=== PATIENT | female | born 1950 | race Caucasian/White ===

== ENCOUNTER → 2020-12-06 | Outpatient (CLI) | payer MEDICARE ==
[~2020-12-06] MED LIST: ACET500T68 PO; AMLO-186 PO; CYCL10TA2 PO; ESTR-113 PO; FAMO20TA5 PO; FENO160T PO; GABA300C18 PO; IOHEXOL 180 MG/ML 10 ML VIAL. ONE; LEVO25TA4 PO; LOSA1TAB25 PO; MELA10TA7 PO; MELO15TA23 PO; NIAC500T51 PO; SERT50TA PO; TRAZ-123 PO; methylPREDNISolone ACETATE 80 MG/ML VIAL. ONE
--- NOTE | 2020-12-06 11:52 | PDOC4 ---
Procedure Note: ICD 10 Code: ICD 10 Code: M54.16 M4 8.07 M51.36 M 96.1 Procedure Note: Patient was consented for lumbar epidural steroid injection with fluoroscopic guidance. Risks were discussed including but not limited to: Bleeding, infection, possibility of epidural hematoma and subsequent neurological compromise, dural puncture, headaches, spinal cord and/or nerve damage, side effects of steroid medication, and poor results regarding pain control. Patient understands and wished to proceed. Procedure is lumbar epidural steroid injection under local anesthetic using sterile prep and drape at the L3-4 level using C-arm fluoroscopic guidance in both AP and lateral views medications injected is 120 mg Depo-Medrol +10mL preservative-free normal saline and 2 mL contrast- condition at discharge is stable patient tolerated procedure well had no complications. LA ESPINOZA MD Dec 06, 2020 11:52
--- NOTE | 2020-12-06 11:52 | PDOC1 ---
INITIAL PAIN CONSULT DATE OF SERVICE: DOS: DATE: 12/06/20 TIME: 11:44 CHIEF COMPLAINT: Chief Complaint: Low back and left greater than right lower extremity pain HISTORY OF PRESENT ILLNESS: 70-year-old female presents history of pain low back bilateral lower extremities left greater than right for many years worse over the past 3 months or so though patient reports increased pain without the result of any injury or accident that she is aware of is getting worse with walking standing changing position specially getting up from a seated position and standing patient reports pain in both legs but worse on the left side most times. Patient reports pain across th e low back and the bilateral lower extremities posterior gluteus lateral thighs anterior thighs medial thighs and posterior thighs to some extent as well right and left patient reports again the left is worse better with sitting or laying down generally does not awaken her from sleep at night she does take a sleeping aid however patient reports no bowel or bladder incontinence, but does affect her ability to walk although she does not use any assistive devices. Patient is had physical therapy in the past has been doing some stretching and exercises from this as well these are helping the pain significantly. Patient is not had any other treatments at this time. Patient is taking gabapentin as well as [id number] Tylenol which will decrease the pain slightly. Patient rates her disability rating 0-10 10 being the worst is a 7 with family home responsibilities social activity and self-care 10 with recreational activities 0 with occupation and sexual behavior in 3 with life support activities. Patient have an MRI scan lumbar spine showing at L3-4 generalized disc bulge and severe bilateral ligamentum flavum thickening resulting in severe central canal stenosis severe bilateral facet arthropathy left paracentral focal disc extrusion or sequestered disc fragment measuring 8 mm extending superiorly along the course of the traversing left L3 nerve root and posterior to the left aspect of the L3 vertebral body. L4-5 shows previous fusion with advanced facet arthropathy. PAST MEDICAL HISTORY: PMH: Hypertension, heart murmur, hypothyroidism, anemia PREVIOUS SURGERIES: Past Surgical Hx: Hysterectomy, tonsillectomy, , lumbar surgery with fusion, bilateral hip replacements, bowel resection, right foot pinning CURRENT MEDICATIONS: Current Meds: Active Scripts Medications Dose Route/Sig Max Daily Dose Days Date Category Acetaminophen 500 Mg Tablet 2 Tab PO PRN BID PRN 30 12/06/20 Reported Niacinamide 500 Mg Tablet 500 Mg PO BID 12/06/20 Reported Famotidine 20 Mg Tablet 20 Mg PO HS 12/06/20 Reported Melatonin 10 Mg Tab.rapdis 1 Tab PO QHS 30 12/06/20 Reported Trazodone Hcl 100 Mg Tablet 1 Tab PO QHS 12/06/20 Reported Gabapentin (Gabapentin) 300 Mg Capsule 300 Mg PO HS 12/06/20 Reported Meloxicam 15 Mg Tablet 1 Tab PO DAILY 30 12/06/20 Reported Losartan-Hctz 100-12.5 Mg Tab (Losartan/Hydrochlorothiazide) 1 Each Tablet 1 Tab PO DAILY 12/06/20 Reported Fenofibrate 160 Mg Tablet 1 Tab PO DAILY 12/06/20 Reported Cyclobenzaprine Hcl 10 Mg Tablet 10 Mg PO BID 12/06/20 Reported Amlodipine Besylate 5 Mg Tablet 5 Mg PO DAILY 12/06/20 Reported Zoloft (Sertraline Hcl) 50 Mg Tablet 1 Tab PO DAILY 12/06/20 Reported Levothyroxine Sodium 25 Mcg Tablet 1 Tab PO DAILY 12/06/20 Reported Estradiol 1 Mg Tablet 1 Mg PO 2 TIMES A WEEK 12/06/20 Reported ALLERGIES; Allergies: Coded Allergies: No Known Drug Allergies (Unverified , 12/06/20) FAMILY HISTORY: Family Hx: Heart disease, diabetes Alzheimer's SOCIAL HISTORY: Social Hx: Patient drinks alcohol about 2-3 drinks twice to 3 times a week does not smoke denies any illegal illicit or recreational drugs is lives with her spouse lives locally in [facility], and is currently retired REVIEW OF SYSTEMS: ROS: Positive for those items mentioned in history of present illness, all systems are reviewed, otherwise negative ,and are complete full and well-documented on patient's chart. PHYSICAL EXAM: VS: Blood pressure is 184/99 pulse 80 respirations 18 temperature is 98.7 F height is 5 foot 1 inch, weight is 225 pounds PE: PHYSICAL EXAMINATION: GENERAL: The patient is awake, alert, oriented, appropriate, very pleasant in demeanor. HEENT: Shows normocephalic, atraumatic. Extraocular movements are intact and symmetrical. Oral cavity: Mucous membranes moist and pink. NECK: Shows anterior throat supple without palpable lymphadenopathy noted. Swallow reflex symmetrical. CHEST: Shows normal on inspection. Breath sounds are clear bilaterally, no rales rhonchi or wheezes auscultated. HEART: Shows S1, S2 clear. Patient has holosystolic murmur. ABDOMEN: Soft, nontender, nondistended. No palpable organomegaly is noted. BACK: Shows spine grossly in the midline. Normal-appearing cervical lordotic curvature. There is moderately increased thoracic kyphosis, some flattening of the lumbar lordotic curvature, with well-healed surgical scarring noted. Lumbar paraspinous muscles show symmetrical on inspection, on palpation shows some moderate tenderness diffusely throughout the upper, middle and lower distribution of the paraspinous muscles bilaterally and also into the lower thoracic paraspinous musculature, firm and tender, but without specific trigger points, without radiation of pain. The patient has good rotational motion of the lumbar spine, both laterally as well as extension and flexion without s ignificant difficulty. No tenderness over the spinous processes, sacrum or sacroiliac regions. EXTREMITIES: Lower extremities show deep tendon reflexes 1+ in the patellar and tendo calcaneus tendons. Motor exam is 5 on a scale of 5 with right dorsiflexio n, extension, quadriceps and hamstring flexion and 4/5 on the left. Peripheral pulses are 1 posterior tibial. No peripheral edema is noted bilaterally. Lower extremities are warm and dry to touch, equal in color and appearance. Straight leg raise noted to be positive on the right about 45 degrees, left side is positive at approximately 30 degrees leg raise both decreased with knee flexion. Gaenslen's and Sebastian's maneuvers are negative bilaterally. The patient is able to stand, stand on her toes without significant difficulty or loss of balance, walks with a slight favoring gait, does appear to favor the left lower extremity slightly, but not using any assistive devices to ambulate such as canes or walkers. SKIN: Shows warm and dry, good turgor. No edema. No sores, rashes or bruising throughout. IMPRESSION: Impression: 70-year-old female with approximate 3-month history increasing pain low back bilateral lower extremities left greater than right in a radicular fashion MRI scan lumbar spine is noted History of lumbar L4-5 fusion with instrumentation posteriorly Hypertension Heart murmur Plan: Discussed with patient including conservative medical management physical therapies and interventional techniques. Patient would like to pursue interventional techniques. We discussed a lumbar epidural steroid injection using descriptions as well as anatomical models to describe the procedure. Risks were discussed including but not limited to: Bleeding, infection, possibility of epidural hematoma and subsequent neurological compromise, dural puncture, headaches, spinal cord and/or nerve damage, side effects of steroid medication, and poor results regarding pain control. Patient understands and wished to proceed. Patient will return to the clinic in approximate 2 weeks for follow-up, was counseled to return appointment activity level and side effects to be aware of. Procedure is lumbar epidural steroid injection under local anesthetic using sterile prep and drape at the L3-4 level using C-arm fluoroscopic guidance in both AP and lateral views medications injected is 120 mg Depo-Medrol +10mL preservative-free normal saline and 2 mL contrast- condition at discharge is stable patient tolerated procedure well had no complications. LA ESPINOZA MD Dec 06, 2020 11:52
== END | disposition home or self-care (01) ==
LOC: PNCL 10:18
PROVIDERS: ATTEND Anesthesiology
DX: M79.604 Pain in right leg (principal); M54.5 Low back pain; I10 Essential (primary) hypertension; E03.9 Hypothyroidism, unspecified; Z90.710 Acquired absence of both cervix and uterus; Z98.890 Other specified postprocedural states; Z79.899 Other long term (current) drug therapy; Z82.49 Family history of ischemic heart disease and other diseases of the circulatory system
CPT/HCPCS: 62323; J1040; Q9965

== ENCOUNTER → 2020-12-24 | Outpatient (CLI) | payer MEDICARE ==
--- NOTE | 2020-12-24 12:30 | PDOC ---
Progress Note - Pain Clinic Date of Service: DOS: DATE: 12/24/20 TIME: 12:27 Diagnosis: Dx: Lumbar radiculopathy with lumbar degenerative disease lumbar spinal stenosis with lumbar postlaminectomy syndrome History or Present Illness: HPI: 70-year-old female returns for follow-up status post lumbar epidural steroid injection x1. Patient reports about 50% improvement overall pain in the low back and bilateral lower extremities now more noticeable on the right side than the left but present bilaterally patient which are left side traditionally was worse and her right side is now equally it increased but her left side is improved patient reports her pain is a 6 on scale 10 is worse over the past week 4-5 on average 1 at its least and is a 1 today patient reports is tingling sta bbing on and off intensity better with sitting or laying down generally does not awaken her from sleep at night patient reports only bad when she is up and around walking standing the first 2 days after the injection was more noticeable with pain but then the left leg became much more improved patient reports is still aching across the low back but again new pain in the right lower extremity which is much more noticeable than the left at this time. Patient reports no bowel bladder motor or sensory deficits. Physical Exam: VS: Blood pressure is 142/86 pulse 91 respirations 18 temp 70 Fahrenheit height 5 foot 1 inch weight is 218 pounds PE: PHYSICAL EXAMINATION: GENERAL: The patient is awake, alert, oriented, appropriate, very pleasant in demeanor HEENT: Shows normocephalic, atraumatic. Extraocular movements are intact and symmetrical. Oral cavity: Mucous membranes moist and pink. Dentition is intact. NECK: Shows anterior throat supple without palpable lymphadenopathy noted. Swallow reflex symmetrical. CHEST: Shows normal on inspection. Breath sounds are clear bilaterally, distant no rales. HEART: Shows S1, S2 clear. No murmurs auscultated. ABDOMEN: Soft, nontender, nondistended, obese. No palpable organomegaly is noted. BACK: Shows spine grossly in the midline. Normal-appearing cervical lordotic curvature. There is slightly increased thoracic kyphosis, some minor flattening of the lumbar lordotic curvature. Lumbar paraspinous muscles show symmetrical on inspection, on palpation shows some moderate tenderness diffusely throughout the upper, middle and lower distribution of the paraspinous muscles without specific trigger points, without radiation of pain. The patient has good rotational motion of the lumbar spine, both laterally as well as extension and flexion without significant difficulty. EXTREMITIES: Lower extremities show deep tendon reflexes 1 in the patellar and tendo calcaneus tendons. Motor exam is 5 on a scale of 5 with right dorsif lexion, extension, quadriceps and hamstring flexion and 4/5 on the left. Peripheral pulses are 1 posterior tibial. No peripheral edema is noted bilaterally. Lower extremities are warm and dry to touch, equal in color and appearance. SKIN: Shows warm and dry, good turgor. No edema. No sores, rashes or bruising throughout. Procedure: Procedure: Options were discussed with patient. Patient chart reviews her current medication regimen updated current review of systems updated today as well. We will proceed with a lumbar epidural steroid injection today with fluoroscopic guidance. Risks were discussed including but not limited to: Bleeding, infection, possibility of epidural hematoma and subsequent neurological compromise, dural puncture, headaches, spinal cord and/or nerve damage, side effects of steroid medication, and poor results regarding pain control. Patient understands and wished to proceed. Patient return to clinic in approximate 2 weeks for follow-up, was counseled as return appointment, activity level, and side effects beware of. Medication Injected: Med Injected: Procedure is lumbar epidural steroid injection under local anesthetic using sterile prep and drape at the L3-4 level using C-arm fluoroscopic guidance in both AP and lateral views medications injected is 120 mg Depo-Medrol +10mL preservative-free normal saline and 2 mL contrast- condition at discharge is stable patient tolerated procedure well had no complications. Condition at Discharge: Condition at Discharge: Condition at discharge is stable, patient tolerated procedure well and had no complications. LA ESPINOZA MD Dec 24, 2020 12:29
--- NOTE | 2020-12-24 12:30 | PDOC4 ---
Procedure Note: ICD 10 Code: ICD 10 Code: M54.16 M4 8.06 M 96.1 M51.36 Procedure Note: Patient was consented for lumbar epidural steroid injection with fluoroscopic guidance. Risks were discussed including but not limited to: Bleeding, infection, possibility of epidural hematoma and subsequent neurological compromise, dural puncture, headaches, spinal cord and/or nerve damage, side effects of steroid medication, and poor results regarding pain control. Patient understands and wished to proceed. Procedure is lumbar epidural steroid injection under local anesthetic using sterile prep and drape at the L3-4 level using C-arm fluoroscopic guidance in both AP and lateral views medications injected is 120 mg Depo-Medrol +10mL preservative-free normal saline and 2 mL contrast- condition at discharge is stable patient tolerated procedure well had no complications. LA ESPINOZA MD Dec 24, 2020 12:30
== END | disposition home or self-care (01) ==
LOC: PNCL 10:38
PROVIDERS: ATTEND Anesthesiology
DX: M51.16 Intervertebral disc disorders with radiculopathy, lumbar region (principal); M48.061 Spinal stenosis, lumbar region without neurogenic claudication; M96.1 Postlaminectomy syndrome, not elsewhere classified; Z79.899 Other long term (current) drug therapy
CPT/HCPCS: 62323; J1040; Q9965

== ENCOUNTER → 2021-01-21 | Outpatient (CLI) | payer MEDICARE ==
[~2021-01-21] MED LIST changes: +methylPREDNISolone ACETATE 40 MG/ML VIAL. ONE
--- NOTE | 2021-01-21 10:58 | PDOC ---
Progress Note - Pain Clinic Date of Service: DOS: DATE: 01/21/21 TIME: 10:55 Diagnosis: Dx: Lumbar radiculopathy lumbar degenerative disease lumbar spinal stenosis and lumbar postlaminectomy syndrome History or Present Illness: HPI: 70-year-old female returns for follow-up status post lumbar epidural steroid injection x2 most recently December 24, 2020 patient did very well with about 50% improvement in the low back and the left lower extremity patient reports new pain however in the right leg now which is unusual for her and is in the anterior thigh anterior medial lower leg to the ankle patient reports its come up over the past 2 weeks or so not the result of any specific injury or accident that she is aware but is been much more noticeable on the right side patient points to some pain in the low back and the left side but the right side is now even more uncomfortable. Patient reports is aching and sharp tingling radiating in the right leg rates a 7 on scale 10 is worse over the past week 5 on average 3 at its least and is a 3 today patient reports keeping her awake from sleep occasionally but most nights she sleeps fairly well. Patient reports no new motor or sensory deficits no bowel or bladder incontinence. Initially patient did much better with distance walking doing household activities work activities travel with greater ease and comfort. Physical Exam: VS: Blood pressure is 149/86 pulse 84 respirations 20 temperature 98.7 F weight is 226 pounds. PE: PHYSICAL EXAMINATION: GENERAL: The patient is awake, alert, oriented, appropriate, very pleasant in demeanor HEENT: Shows normocephalic, atraumatic. Extraocular movements are intact and symmetrical. Oral cavity: Mucous membranes moist and pink. Dentition is int act. NECK: Shows anterior throat supple without palpable lymphadenopathy noted. Swallow reflex symmetrical. CHEST: Shows normal on inspection. Breath sounds are clear bilaterally, no rales rhonchi or wheezes auscultated. HEART: Shows S1, S2 clear. No murmurs auscultated. ABDOMEN: Soft, nontender, nondistended, obese. No palpable organomegaly is noted. BACK: Shows spine grossly in the midline. Normal-appearing cervical lordotic curvature. There is increased thoracic kyphosis, some flattening of the lumbar lordotic curvature, with well-healed surgical scarring again noted. Lumbar paraspinous muscles show symmetrical on inspection, on palpation shows some moderate tenderness diffusely throughout the upper, middle and lower distribution of the paraspinous muscles without specific trigger points, without radiation of pain. The patient has good rotational motion of the lumbar spine, both laterally as well as extension and flexion without significant difficulty. EXTREMITIES: Lower extremities show deep tendon reflexes 1 in the patellar and tendo calcaneus tendons. Motor exam is 5 on a scale of 5 with right dorsiflexion, extension, quadriceps and hamstring flexion and 4/5 on the left. Peripheral pulses are 1+ posterior tibial. No peripheral edema is noted bilaterally. Lower extremities are warm and dry to touch, equal in color and appearance. SKIN: Shows warm and dry, good turgor. No edema. No sores, rashes or bruising throughout. Procedure: Procedure: Options discussed with patient patient chart reviews her current medication regimen updated current review of systems updated today as well. We will proceed with a lumbar epidural steroid injection today with fluoroscopic guidance. Risks were discussed including but not limited to: Bleeding, infection, possibility of epidural hematoma and subsequent neurological compromise, dural puncture, headaches, spinal cord and/or nerve damage, side effects of steroid medication, and poor results regarding pain control. Patient understands and wished to proceed. Patient return to clinic in approximate 2 weeks for follow-up, was counseled return appointment, typical, and side effects beware of. Patient also is scheduled to have neurosurgical evaluation and encouraged her to maintain that appointment as well. Medication Injected: Med Injected: Procedure is lumbar epidural steroid injection under local anesthetic using sterile prep and drape at the L3-4 level using C-arm fluoroscopic guidance in both AP and lateral views medications injected is 120 mg Depo-Medrol +10mL preservative-free normal saline and 2 mL contrast- condition at discharge is stable patient tolerated procedure well had no complications. Condition at Discharge: Condition at Discharge: Condition at discharge stable, pain tolerated procedure well and had no complications. LA ESPINOZA MD Jan 21, 2021 10:58
--- NOTE | 2021-01-21 10:59 | PDOC4 ---
Procedure Note: ICD 10 Code: ICD 10 Code: M54.16 M 48.06 M51.36 M 96.1 Procedure Note: Patient was consented for lumbar epidural steroid injection with fluoroscopic guidance. Risks were discussed including but not limited to: Bleeding, infection, possibility of epidural hematoma and subsequent neurological compromise, dural puncture, headaches, spinal cord and/or nerve damage, side effects of steroid medication, and poor results regarding pain control. Patient understands and wished to proceed. Procedure is lumbar epidural steroid injection under local anesthetic using sterile prep and drape at the L3-4 level using C-arm fluoroscopic guidance in both AP and lateral views medications injected is 120 mg Depo-Medrol +10mL preservative-free normal saline and 2 mL contrast- condition at discharge is stable patient tolerated procedure well had no complications. LA ESPINOZA MD Jan 21, 2021 10:59
== END | disposition home or self-care (01) ==
LOC: PNCL 10:06
PROVIDERS: ATTEND Anesthesiology
DX: M51.16 Intervertebral disc disorders with radiculopathy, lumbar region (principal); M48.061 Spinal stenosis, lumbar region without neurogenic claudication; M96.1 Postlaminectomy syndrome, not elsewhere classified; Z79.899 Other long term (current) drug therapy
CPT/HCPCS: 62323; J1030; J1040; Q9965